=== PATIENT | male | born 1985 | race Caucasian/White ===

== ENCOUNTER → 2017-09-21 10:52 | Outpatient (CLI) | payer OTHER, SELFPAY ==
--- NOTE | 2017-09-21 10:57 | RAD_ITS ---
STUDY: X-RAY - LEFT FOOT CLINICAL: Male, 32 years old. Check for foreign body. TECHNIQUE: 2 view(s) of the foot. COMPARISON: None. FINDINGS: Normal talus, calcaneus, and tarsal bones. Normal visualized subtalar, talonavicular, calcaneocuboid, tarsal and tarsometatarsal articulations. Normal metatarsi. Normal metatarsophalangeal joint of the great toe. Normal tibial and fibular sesamoid bones. Normal interphalangeal joint of the great toe. Normal phalanges of the great toe. Normal second through fifth metatarsophalangeal joints. Normal interphalangeal joints and phalanges of the lesser toes. There is minor soft tissue swelling at the ball of the foot. A point of interest as denoted by a marker on the lateral view, but no radiopaque foreign body is demonstrated. There is no demonstrated fracture. RAD/Foot 2 Views IMPRESSION: Moderate soft tissue swelling at the ball of the foot. No opaque foreign body or acute fracture of the left foot. Electronically Signed: Juarez Child MD at 20:01 EDT , Service support ,
== END ==
PROVIDERS: Family Provider Internal Medicine; PCP Internal Medicine; Visit Provider Internal Medicine
DX: M79.672 Pain in left foot (principal); M79.89 Other specified soft tissue disorders
CPT/HCPCS: 73620

== ENCOUNTER 2018-04-16 20:06 | Emergency (ER) | payer BC, SELFPAY ==
[2018-04-16 20:08] VITALS: BP 148/84; PULSE 72; RESP 20; TEMP 36.8; O2SAT 98; BMI 30.7
[2018-04-16 20:15] VITALS: BP 149/87; PULSE 77; RESP 16; TEMP 36.8; O2SAT 97
--- NOTE | 2018-04-16 20:30 | RAD_ITS ---
STUDY: X-RAY CHEST REASON FOR EXAM: Male, 32 years old. Chest pain. TECHNIQUE: AP chest. COMPARISON: None. FINDINGS: The lungs are clear and expanded. There is no demonstrated pleural abnormality. Normal size heart. Normal mediastinum and jaspreet. Normal visualized pulmonary arteries. Normal visualized aortic arch and descending thoracic aorta. Normal visualized thoracic spine. Normal visualized ribs, clavicles, and shoulders. There is no demonstrated abnormality of the visualized soft tissue structures of the upper abdomen. RAD/Chest 1 View (Portable) IMPRESSION: Normal x-ray examination of the chest. Electronically Signed: Colleen Arredondo MD at 20:55 EST Tel , Service support ,
--- NOTE | 2018-04-16 20:30 | EKG12_ITS ---
Test Reason : CHEST PAIN Blood Pressure : / mmHG Vent. Rate : 069 BPM Atrial Rate : 069 BPM P-R Int : 148 ms QRS Dur : 094 ms QT Int : 362 ms P-R-T Axes : 064 033 029 degrees QTc Int : 387 ms Normal sinus rhythm with sinus arrhythmia Normal ECG Confirmed by ASHLEIGH SHANKS, CATHERINE ([id number]), development editor TAMAR WATSON ([id number] on 04/18/2018 11:20:14 AM Referred By: KALPANA Confirmed By:CATHERINE SOTELO MD
--- NOTE | 2018-04-16 20:34 | ED.RN ---
NO OLD EKGS ON MUSE
[2018-04-16 20:46] LABS: Absolute Lymphocyte Count 2.31 X10^3/ul (0.83-4.51); Absolute Neutrophil Count 4.4 X10^3/uL (2.0-7.7); Basophil# 0.04 X10^3/uL; Basophil% 0.5 % (0-1); Eosinophil# 0.11 X10^3/uL; Eosinophils% 1.5 % (0-5); Hematocrit 45.7 % (40-54); Hemoglobin 15.1 g/dl (13.0-16.5); Lymphocyte # 2.31 X10^3/ul (4.0); Lymphocyte % 30.5 % (19-41); Mean Corpuscular Hgb 29.5 pg (27.0-32.0); Mean Corpuscular Volume 89.3 fL (80-94); Mean Platelet Vol. 9.9 fl (6.2-12.0); Monocyte# 0.68 X10^3/uL; Neutrophil # 4.43 X10^3/uL (2.7-7.7); Neutrophil % 58.4 % (47-70); Platelet Count 262 K/mm3 (150-450); RBC Distribution Width CV 12.6 % (11.6-14.6); RBC Distribution Width SD 40.8 fl (35.1-43.9); Red Blood Count 5.12 M/mm3 (4.6-6.2); White Blood Count 7.6 K/mm3 (4.4-11.0)
[2018-04-16 20:48] LABS: POSITIVE COUNT NO; POSITIVE DIFFERENTIAL NO; POSITIVE MORPHOLOGY NO
[2018-04-16 21:02] LABS: BUN 16 mg/dL (7-18); BUN/Creat Ratio 16.1 RATIO (10-20); Calcium,Total 8.7 mg/dL (8.5-10.1); EST Glomerular Filtration Rate 93 mL/min (>60); Est Glom Filt Rate - Afr Amer 112 mL/min (>60); Glucose 74 mg/dL (74-106)
[2018-04-16 21:34] VITALS: BP 113/73; PULSE 73; RESP 19; O2SAT 98
--- NOTE | 2018-04-16 21:49 | ED.DCSUM_ITS ---
- ER Visit Summary Date of Service: 04/16/18 Chief Complaint: Chest pain History of Present Illness: The patient is a 32 M who has a history of hypertension. He is at home tonight or on the computer around 1800 hrs. when he began to feel a tightness in his chest his eyes felt heavy and may be a little short of breath. His mom came over to see him and he was out taking care of the cattle. He reports his left him 2-3 weeks ago. He is at a chiropractor today and received some back manipulation. He was deer hunting over the weekend states that he felt that he was out of shape after feel dressing and caring 160 pound dear. He did not have any chest pain at that time. Patient has no PE risk factors no thoracic artery dissection risk factors his cardiovascular disease risk factors are hypertension. Physical Examination: Afebrile vital signs are stable Gen: Well-nourished well-developed Head: Normocephalic atraumatic Eyes: Perrl EOMI ENT: TMs clear no rhinorrhea moist mucous membranes Neck: Supple no lymphadenopathy no JVD nontender CVS: Regular rate rhythm no murmurs normal S1-S2 Respiratory: No distress clear to auscultation bilaterally chest nontender Abdomen: Soft nontender nondistended normal bowel sounds no masses Back: Nontender Extremity: Nontender no edema Skin: Normal color no rash Neuro: alert orientated ?3 CN II-XII intact normal strength sensation reflexes gait cerebellar Psych: Normal affect normal mood Test Results: EKG shows a normal sinus rhythm at a rate of 69 BC chemistries and troponin were negative. It should be noted that the initial set of electrolytes demonstrated a hyponatremia/hypokalemia. There is difficulty with machine and they are being repeated. Repeat demonstrated normal sodium and potassium. Chest x-ray negative. Emergency Department Course and Treatment: Patient has been resting comfortably. We talked about a delta troponin and we talked about the added value of it and reducing risk for discharge and low risk patients. He does not wish to stay for the second troponin. I have advised him to follow-up with his doctor. He notes understanding. Impression: 1. Chest pain This note was generated with [employer] dictation software. It may contain incorrect words, spelling, and punctuation that were not noted in review of the chart prior to signing ED Disposition - Plan for ED Patient: Disposition: Home or Assisted Living Chief Complaint: Chest Pain Instructions: ED Chest Pain Atypical Unkn Cause Referrals: China Luque DO [Primary Care Provider] - 1 Week
[2018-04-16 22:07] VITALS: BP 112/77; PULSE 63; RESP 18; O2SAT 97
--- NOTE | 2018-04-16 22:08 | ED.RN ---
PT GIVEN WRITTEN AND VERBAL DISCHARGE INSTRUCTIONS AND HOME GOING PRESCRIPTIONS. PT VERBALIZES UNDERSTANDING. PT DENIES ANY FURTHER QUESTIONS. IV D/C AND COVERED WITH 2X2 GAUZE DRESSING AND PAPER TAPE.
[2018-04-16 22:36] LABS: Anion Gap 4 (5-15); BUN 17 mg/dL (7-18); Calcium,Total 8.6 mg/dL (8.5-10.1); Chloride 106 mmol/L (98-107); EST Glomerular Filtration Rate 105 mL/min (>60); Est Glom Filt Rate - Afr Amer 127 mL/min (>60); Estimated Creatinine Clearance 126.66 ml/min; Glucose 89 mg/dL (74-106); Potassium 3.9 mmol/L (3.5-5.1); Sodium Level 140 mmol/L (136-145)
[2018-04-17 13:02] LABS: Sodium Level 139 mmol/L (136-145)
[2018-04-17 13:03] LABS: Anion Gap 5 (5-15); Chloride 105 mmol/L (98-107); Potassium 3.7 mmol/L (3.5-5.1)
== END 2018-04-16 22:11 | disposition home or self-care (01) ==
PROVIDERS: Emergency Provider Emergency Medicine; Family Provider Internal Medicine; PCP Internal Medicine
DX: R07.9 Chest pain, unspecified (principal); I10 Essential (primary) hypertension
CPT/HCPCS: 71045; 80048; 84484; 85025; 93005; 99284; A4216